=== PATIENT | male | born 1960 | race Caucasian/White ===

== ENCOUNTER 2019-12-14 10:58 | Observation (INO) | payer BC ==
[2019-12-14] MEDS: Lactated Ringers 1,000 ML IV SCH ×4 (11:22→23:31)
[2019-12-14 14:27] LABS: CHLORIDE,CL 105 mEq/L (98-106); SODIUM,NA 141 mEq/L (136-145)
[2019-12-14] MEDS ORDERED: Ondansetron 4 MG/2 ML SDV IV PRN (15:21)
[2019-12-14] MEDS ORDERED: Non-Formulary Medication 1 Each (Albuterol 0 PUFF) INH PRN (15:23)
[2019-12-14] MEDS: LOSARTAN 50 MG PO SCH (18:16)
[2019-12-14] MEDS: FLOVENT INH SCH (19:53)
[2019-12-15 04:48] VITALS: PULSE 65
[2019-12-15] MEDS: FLOVENT INH SCH (07:40)
[2019-12-15] MEDS: LOSARTAN 50 MG PO SCH (07:41)
[2019-12-15] MEDS ORDERED: ARGININE 500 MG PO SCH (08:00)
[2019-12-15] MEDS ORDERED: Famotidine 20 MG Tab PO SCH (08:00)
[2019-12-15] MEDS ORDERED: Loratadine 10 MG Tab PO SCH (08:00)
[2019-12-15] MEDS ORDERED: Fluticasone Propionate Nasal Spray 16 GM Bottle NASBOTH SCH (08:00)
[2019-12-15] MEDS ORDERED: METOPROLOL SUC PO SCH (08:00)
[2019-12-15 08:36] VITALS: BP 140/87
--- NOTE | 2019-12-15 08:44 | PCM.DCSUM1 ---
Discharge Summary - Hospital Course HPI Initial Comments: This patient is a 59 year old male that was admitted yesterday for nausea and vomiting x2. Patient presented with FB sensation in epigastric region. He underwent EGD by Dr. Gan yesterday. After procedure patient reports the FB was gone sensation. Patient reports vomiting x2 after procedure. Patient reports after vomiting yesterday, which he says was around 4pm, he felt fine. He reports his nausea resolved. Labs and troponin were done. EKG was done and read yesterday as no ST elevations. 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 Due to this, will redraw a troponin this morning. If negative will discharge patient home. Dr. Gan has already seen the patient today and discharged form his care for home. - Discharge Data Discharge Date: 12/15/19 Discharge Disposition: Home, Self-Care 01 Condition: Good - Referral to Home Health Primary Care Physician: Jose Castaneda MD - Patient Instructions Diet: Usual Diet as Tolerated Activity: As Tolerated Driving: May Drive Today Showering/Bathing: May Shower Notify Provider of: Fever, Nausea and/or Vomiting Other/Special Instructions: Followup with primary care provider as needed. Return as needed. Followup with Dr. Gan as needed or as directed - Discharge Plan *PRESCRIPTION DRUG MONITORING PROGRAM REVIEWED*: Not Applicable *COPY OF PRESCRIPTION DRUG MONITORING REPORT IN PATIENT VICTOR HUGO: Not Applicable Home Medications: Home Meds Montelukast [Singulair] 10 mg PO DAILY 04/09/13 [History] Albuterol [Ventolin HFA] 1 - 2 puff INH Q4H PRN 12/25/13 [History] Arginine 500 mg PO DAILY 07/31/16 [History] Cetirizine [ZyrTEC] 10 mg PO DAILY 07/31/16 [History] Ibuprofen [Motrin] 600 mg PO Q8H PRN 07/31/16 [History] Losartan [Cozaar] 50 mg PO DAILY 07/31/16 [History] Magnesium 250 mg PO DAILY 07/31/16 [History] Metoprolol Succinate [Toprol XL] 100 mg PO DAILY 07/31/16 [History] Multivitamin [Multivitamins] 1 cap PO DAILY 07/31/16 [History] Mcgrann-3 Fatty Acids [Fish Oil] 300 mg PO DAILY 07/31/16 [History] Saw Meherrin Fruit [Saw Meherrin] 450 mg PO DAILY 07/31/16 [History] Ascorbic Acid [Vitamin C] 1,000 mg PO DAILY 12/14/19 [History] Cholecalciferol (Vitamin D3) [Vitamin D3] 1,000 unit PO DAILY 12/14/19 [History] Famotidine 20 mg PO DAILY 12/14/19 [History] Fluticasone Propionate [Flonase] 2 spray NS DAILY 12/14/19 [History] Fluticasone Propionate [Flovent] 1 puff INH BID 12/14/19 [History] Patient Handouts: Fox's Esophagus - Discharge Summary/Plan Comment DC Time >30 min.: No - General Info Functional Status: Reports: Pain Controlled, Tolerating Diet, Ambulating, Urinating - Review of Systems General: Reports: No Symptoms HEENT: Reports: No Symptoms Pulmonary: Reports: No Symptoms. Denies: Shortness of Breath Cardiovascular: Reports: No Symptoms. Denies: Chest Pain, Palpitations, Dyspnea on Exertion, Lightheadedness Gastrointestinal: Reports: No Symptoms. Denies: Abdominal Pain, Nausea, Vomiting Genitourinary: Reports: No Symptoms Musculoskeletal: Reports: No Symptoms Skin: Reports: No Symptoms Neurological: Reports: No Symptoms Psychiatric: Reports: No Symptoms - Patient Data Vitals - Most Recent: Last Vital Signs Temp 97.2 F 12/15/19 08:00 Pulse 65 12/15/19 08:00 Resp 16 12/15/19 08:00 BP 140/87 12/15/19 08:00 Pulse Ox 95 12/15/19 08:00 Weight - Most Recent: 249 lb I&O - Last 24 hours: Intake & Output 12/14/19 12/15/19 12/15/19 22:59 06:59 14:59 Intake Total 860 Balance 860 Lab Results - Last 24 hrs: Laboratory Results - last 24 hr 12/14/19 12/14/19 Range/Units 14:02 14:02 WBC 9.6 (5.0-10.0) 10^3/uL RBC 4.83 (4.50-6.00) 10^6/uL Hgb 14.8 (14.0-18.0) g/dL Hct 44.3 (40.0-54.0) % MCV 91.7 (82.0-94.0) fL MCH 30.6 (27.0-32.0) pg MCHC 33.4 (33.0-38.0) g/dL RDW Coeff of Regis 13.0 (11.0-15.0) % Plt Count 218 (150-400) 10^3/uL Neut % (Auto) 72.1 (35-85) % Lymph % (Auto) 17.1 (10-55) % Piute % (Auto) 8.6 (0-16) % Eos % (Auto) 1.8 (0-5) % Baso % (Auto) 0.4 (0-3) % Neut # (Auto) 6.92 (1.80-7.00) 10^3/uL Lymph # (Auto) 1.64 (1.00-4.80) 10^3/uL Piute # (Auto) 0.82 H (0.00-0.80) 10^3/uL Eos # (Auto) 0.17 (0.00-0.45) 10^3/uL Baso # (Auto) 0.04 10^3/uL Sodium 141 (136-145) mEq/L Potassium 4.3 (3.5-5.0) mEq/L Chloride 105 (98-106) mEq/L Carbon Dioxide 26 (21-32) mmol/L BUN 21 H (7-18) mg/dL Creatinine 0.9 (0.7-1.3) mg/dL Est Cr Clr Drug Dosing 102.34 mL/min Estimated GFR (MDRD) > 60 (>=60) mL/min Glucose 150 H D (75-99) mg/dL Calcium 8.6 (8.4-10.1) mg/dL Lactate Dehydrogenase 152 (100-190) U/L Creatine Kinase 49 (35-232) U/L Troponin I < 0.017 (0.00-0.06) ng/mL Med Orders - Current: Current Medications Famotidine (Pepcid) 20 mg PO DAILY [facility] Last Admin: 12/15/19 07:43 Dose: Not Given Documented by: Fluticasone Propionate (Flonase) gm NASBOTH DAILY [facility] Lactated Ringer's (Ringers, Lactated) 1,000 mls @ 125 mls/hr IV ASDIRECTED [facility] Last Admin: 12/14/19 23:31 Dose: 125 mls/hr Documented by: Loratadine (Claritin) 10 mg PO DAILY [facility] Last Admin: 12/15/19 07:43 Dose: Not Given Documented by: Magnesium Oxide (Magnesium Oxide) 250 mg PO DAILY [facility] Last Admin: 12/15/19 07:43 Dose: Not Given Documented by: Montelukast Sodium (Singulair) 10 mg PO DAILY [facility] Last Admin: 12/15/19 07:41 Dose: 10 mg Documented by: Non-Formulary Medication (Albuterol) 1 - 2 puff INH Q4H PRN PRN Reason: Dyspnea Non-Formulary Medication (Arginine [Arginine]) 500 mg PO DAILY [facility] Flovent Diskus (Inhaler Own Med) 1 puff INH BID [facility] Last Admin: 12/15/19 07:40 Dose: 1 puff Documented by: Losartan 50 Mg (Own Med) 0 mg PO DAILY [facility] Last Admin: 12/15/19 07:41 Dose: 50 mg Documented by: Ondansetron HCl (Zofran) 4 mg IV Q4H PRN PRN Reason: Nausea/Vomiting Metoprolol Suc 100mg (Tab Own Med) 0 each PO DAILY [facility] Last Admin: 12/15/19 07:41 Dose: 1 each Documented by: Discontinued Medications Lactated Ringer's (Ringers, Lactated) 1,000 mls @ 125 mls[facility] Admin: 12/14/19 14:07 Dose: 125 mls/hr Documented by: - Exam General: Reports: Alert, Oriented, Cooperative Neck: Reports: Supple, Trachea Midline, No JVD Lungs: Reports: Clear to Auscultation, Normal Respiratory Effort Cardiovascular: Reports: Regular Rate, Regular Rhythm, Other (defib) GI/Abdominal Exam: Normal Bowel Sounds, Soft, Non-Tender, No Organomegaly, No Distention Back Exam: Reports: Normal Inspection Extremities: Normal Inspection, Non-Tender, No Pedal Edema, Normal Capillary Refill Skin: Reports: Warm, Dry, Intact Psy/Mental Status: Reports: Alert, Normal Affect, Normal Mood
--- NOTE | 2019-12-17 11:13 | OR ---
DATE OF OPERATION: 12/14/2019 PREOPERATIVE DIAGNOSIS: FOREIGN BODY OBSTRUCTION OF THE ESOPHAGUS. POSTOPERATIVE DIAGNOSIS: FOREIGN BODY OBSTRUCTION OF THE ESOPHAGUS. SURGEON: Zechariah Gan MD PROCEDURE: ESOPHAGOGASTRODUODENOSCOPY WITH REMOVAL OF FOREIGN BODY WITHIN THE ESOPHAGUS (FOOD BOLUS). ANESTHESIA: Monitored anesthesia care. SPECIMEN: None. INDICATIONS: This 59-year-old male presented to the [facility] with a day-long history of inability to swallow even much in the way of liquids. He thinks he was eating a pork chop last night and that was when his obstructive symptoms started. DESCRIPTION OF PROCEDURE: After adequate preparation, a gastroscope was inserted into the esophagus. This was passed down to the mid esophagus, where a retained food bolus was noted. I was able to pass the scope through this and down to the distal portion of the esophagus. There was a food bolus also at the distal end, which was easily manipulated and pushed down into the stomach. The scope was withdrawn, and the remaining food bolus was irrigated clear and pushed down into the stomach. This completely cleared the esophagus without any difficulty. There was no evidence of mechanical obstruction secondary to a tumor or a stricture. 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 This was circumferential for about 10 cm and the lip of Fox's extends up to at least 15 to 20 cm. Multiple biopsies of the area were taken for pathological identification. 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 Examination of the stomach was normal by scope as was the duodenum. Air was suctioned from the stomach, and the scope was removed. BPB/JEFFL /[id number]
== END 2019-12-15 09:28 | disposition home or self-care (01) ==
LOC: CC.SDS 10:58 → CC.MS 15:21
PROVIDERS: ADMIT Physician Assistant Medical; ATTEND Surgery
DX: K22.2 Esophageal obstruction (principal); T18.128A Food in esophagus causing other injury, initial encounter; E11.9 Type 2 diabetes mellitus without complications; G47.30 Sleep apnea, unspecified; N40.1 Benign prostatic hyperplasia with lower urinary tract symptoms; R35.1 Nocturia; Z88.5 Allergy status to narcotic agent; Z88.6 Allergy status to analgesic agent; Z88.8 Allergy status to other drugs, medicaments and biological substances; Z79.899 Other long term (current) drug therapy
CPT/HCPCS: 36415; 80048; 82550; 83615; 84484; 85025; 93005; 96360; 96361; A9270-GY; G0378; J7120

== ENCOUNTER 2021-09-06 10:42 | Emergency (ER) | payer BC ==
[2021-09-06 11:30] LABS: CHLORIDE,CL 102 mEq/L (98-106); SODIUM,NA 140 mEq/L (136-145)
[2021-09-06] MEDS ORDERED: cefTRIAXone 1 GM Vial IVPUSH ONE (12:22)
[2021-09-06 13:17] VITALS: BP 121/69; PULSE 77
[2021-09-06] MEDS ORDERED: Acetaminophen 325 MG Tab PO ONE (13:17)
== END 2021-09-06 13:36 ==
LOC: CC.ED 10:42
DX: L03.116 Cellulitis of left lower limb (principal); R79.82 Elevated C-reactive protein (CRP); J45.909 Unspecified asthma, uncomplicated; M19.90 Unspecified osteoarthritis, unspecified site; Z88.6 Allergy status to analgesic agent; Z88.5 Allergy status to narcotic agent; Z91.018 Allergy to other foods
CPT/HCPCS: 36415; 73630-LT; 80053; 83605; 85025; 86140; 87040; 96374; 99284; 99284-25; A9270-GY; J0696

== ENCOUNTER 2022-01-05 19:50 | Emergency (ER) | payer BC ==
[2022-01-05 20:34] VITALS: BP 110/61; PULSE 71
[2022-01-05 21:12] LABS: CHLORIDE,CL 105 mEq/L (98-106); SODIUM,NA 139 mEq/L (136-145)
[2022-01-05 21:13] LABS: ESTIMATED GFR 49 mL/min (>=60)
== END 2022-01-05 22:17 | disposition home or self-care (01) ==
LOC: CC.ED 19:50
DX: L02.612 Cutaneous abscess of left foot (principal); E11.9 Type 2 diabetes mellitus without complications; I11.9 Hypertensive heart disease without heart failure; K21.9 Gastro-esophageal reflux disease without esophagitis; Z95.810 Presence of automatic (implantable) cardiac defibrillator; Z88.5 Allergy status to narcotic agent; Z91.018 Allergy to other foods; Z88.8 Allergy status to other drugs, medicaments and biological substances; Z91.048 Other nonmedicinal substance allergy status; Z79.899 Other long term (current) drug therapy
CPT/HCPCS: 36415; 73660-T1; 80053; 83605; 85025; 86140; 87040; 99283

== ENCOUNTER 2022-07-01 11:18 | Emergency (ER) | payer BC ==
[2022-07-01 11:40] VITALS: BP 99/55; PULSE 99
[2022-07-01] MEDS: Ondansetron 4 MG/2 ML SDV IVPUSH ONE (11:58)
[2022-07-01] MEDS: Ketorolac 30 MG/ML SDV IVPUSH ONE (11:59)
[2022-07-01] MEDS: Lactated Ringers 1,000 ML IV ONE ×2 (12:02→13:31)
[2022-07-01] MEDS: Iopamidol 755 Mg/ML 100 ML Bottle IVPUSH ONE (13:01)
== END 2022-07-01 15:00 | disposition home or self-care (01) ==
LOC: SUPCPDRO 11:18 → CC.ED 11:18
DX: K52.9 Noninfective gastroenteritis and colitis, unspecified (principal); J45.909 Unspecified asthma, uncomplicated; K21.9 Gastro-esophageal reflux disease without esophagitis; E11.9 Type 2 diabetes mellitus without complications; Z95.810 Presence of automatic (implantable) cardiac defibrillator; Z91.018 Allergy to other foods; Z88.8 Allergy status to other drugs, medicaments and biological substances; Z88.5 Allergy status to narcotic agent; Z91.048 Other nonmedicinal substance allergy status; Z20.822 Contact with and (suspected) exposure to COVID-19
CPT/HCPCS: 36415; 74177; 80053; 81001; 83605; 83735; 85025; 96361; 96374; 96375; 99284; 99284-25; J1885; J2405; J7120; Q9967; U0002

== ENCOUNTER 2022-07-12 15:56 | Inpatient (IN) | payer BC ==
[2022-07-12 16:30] LABS: CHLORIDE,CL 95 mEq/L (98-106); SODIUM,NA 130 mEq/L (136-145)
[2022-07-12 16:35] LABS: ESTIMATED GFR 87 mL/min (>=60)
[2022-07-12] MEDS ORDERED: Sodium Chloride 0.9% 1,000 ML IV ONE (17:23)
[2022-07-12] MEDS ORDERED: Acetaminophen 325 MG Tab PO PRN (17:30)
[2022-07-12] MEDS ORDERED: Ondansetron 4 MG/2 ML SDV IV PRN (17:30)
[2022-07-12] MEDS ORDERED: Ondansetron 4 MG Tab.DIS PO PRN (17:30)
[2022-07-12] MEDS ORDERED: methylPREDNISolone Sodium Succinate 125 MG/2 ML SDV IVPUSH STA (17:41)
[2022-07-12] MEDS ORDERED: Iopamidol 755 Mg/ML 100 ML Bottle IVPUSH ONE (17:47)
[2022-07-12] MEDS ORDERED: Albuterol 90 MCG/6.7 GM Inhaler INH PRN (17:51)
[2022-07-12] MEDS ORDERED: Levofloxacin/Dextrose 5%-Water 750 MG in Premix Bag 1 BAG IV SCH (18:00)
[2022-07-12] MEDS: metroNIDAZOLE/Normal Saline 500 MG in Premix Bag 1 BAG IV SCH (18:36)
[2022-07-12] MEDS: Hyoscyamine 0.125 MG Tab.SL SL SCH (19:36)
[2022-07-12] MEDS: rOPINIRole 0.25 MG Tab PO SCH (19:36)
[2022-07-12] MEDS: Pantoprazole 40 MG Tab.CR PO SCH (19:36)
[2022-07-12] MEDS: Fluticasone NASAL Spray 16 GM Bottle NASBOTH SCH (19:37)
[2022-07-12] MEDS: Lactated Ringers 1,000 ML IV SCH (21:55)
[2022-07-13] MEDS: metroNIDAZOLE/Normal Saline 500 MG in Premix Bag 1 BAG IV SCH ×4 (01:16→23:54)
[2022-07-13] MEDS: Lactated Ringers 1,000 ML IV SCH ×2 (04:11→15:52)
[2022-07-13] MEDS: Multivitamin Tab PO SCH (08:56)
[2022-07-13] MEDS: Meloxicam 7.5 MG Tab PO SCH (08:56)
[2022-07-13] MEDS: Montelukast 10 MG Tab PO SCH (08:56)
[2022-07-13] MEDS: Pantoprazole 40 MG Tab.CR PO SCH ×2 (08:56→20:08)
[2022-07-13] MEDS: Cholecalciferol (Vitamin D3) 25 MCG Tab PO SCH (08:57)
[2022-07-13] MEDS: Ascorbic Acid 500 MG Tab PO SCH (08:58)
[2022-07-13] MEDS: Hyoscyamine 0.125 MG Tab.SL SL SCH ×3 (08:58→20:08)
[2022-07-13] MEDS: Loratadine 10 MG Tab PO SCH (08:58)
[2022-07-13] MEDS: methylPREDNISolone Sodium Succinate 125 MG/2 ML SDV IVPUSH SCH (08:58)
[2022-07-13] MEDS: Metoprolol Succinate 25 MG Tab.ER PO SCH (09:01)
[2022-07-13] MEDS: Fluticasone NASAL Spray 16 GM Bottle NASBOTH SCH ×3 (09:57→20:03)
[2022-07-13] MEDS: DAPAGLIFLOZIN PROPANEDIOL 5 MG PO SCH (09:58)
[2022-07-13] MEDS: QUINIDINE SULFATE 200 MG PO SCH ×2 (15:39→20:09)
[2022-07-13] MEDS ORDERED: Levofloxacin/Dextrose 5%-Water 750 MG in Premix Bag 1 BAG IV SCH (20:00)
[2022-07-13] MEDS: rOPINIRole 0.25 MG Tab PO SCH (20:09)
[2022-07-13] MEDS: SACUBITRIL PO SCH (20:10)
[2022-07-13] MEDS: VALSARTAN PO SCH (20:10)
[2022-07-14] MEDS: methylPREDNISolone Sodium Succinate 125 MG/2 ML SDV IVPUSH SCH (07:15)
[2022-07-14] MEDS: metroNIDAZOLE/Normal Saline 500 MG in Premix Bag 1 BAG IV SCH ×2 (07:19→16:00)
[2022-07-14] MEDS: Montelukast 10 MG Tab PO SCH (07:25)
[2022-07-14] MEDS: Multivitamin Tab PO SCH (07:25)
[2022-07-14] MEDS: Ascorbic Acid 500 MG Tab PO SCH (07:25)
[2022-07-14] MEDS: Hyoscyamine 0.125 MG Tab.SL SL SCH ×2 (07:26→14:21)
[2022-07-14] MEDS: Loratadine 10 MG Tab PO SCH (07:26)
[2022-07-14] MEDS: Cholecalciferol (Vitamin D3) 25 MCG Tab PO SCH (07:26)
[2022-07-14] MEDS: Pantoprazole 40 MG Tab.CR PO SCH (07:26)
[2022-07-14] MEDS: Meloxicam 7.5 MG Tab PO SCH (07:26)
[2022-07-14] MEDS: DAPAGLIFLOZIN PROPANEDIOL 5 MG PO SCH (07:32)
[2022-07-14] MEDS: QUINIDINE SULFATE 200 MG PO SCH ×2 (07:33→14:19)
[2022-07-14] MEDS: Fluticasone NASAL Spray 16 GM Bottle NASBOTH SCH ×2 (07:34)
[2022-07-14] MEDS: SACUBITRIL PO SCH (07:34)
[2022-07-14] MEDS: VALSARTAN PO SCH (07:34)
[2022-07-14] MEDS: Metoprolol Succinate 25 MG Tab.ER PO SCH (08:38)
[2022-07-14 16:56] VITALS: BP 101/51; PULSE 79
[2022-07-14] MEDS ORDERED: Lactated Ringers 1,000 ML IV SCH (17:15)
== END 2022-07-14 18:45 | DRG 249 ==
LOC: CC.FCMC 15:56 → CC.MS 15:56 → UNDOADMIN 17:03 → CC.MS 17:03
PROVIDERS: ADMIT Nurse Practitioner Family; ATTEND Nurse Practitioner Family
DX: K52.9 Noninfective gastroenteritis and colitis, unspecified (principal); E87.1 Hypo-osmolality and hyponatremia; R63.4 Abnormal weight loss; H54.7 Unspecified visual loss; K21.9 Gastro-esophageal reflux disease without esophagitis; I10 Essential (primary) hypertension; G47.30 Sleep apnea, unspecified; J45.909 Unspecified asthma, uncomplicated; E11.9 Type 2 diabetes mellitus without complications; M19.90 Unspecified osteoarthritis, unspecified site; Z96.641 Presence of right artificial hip joint; Z88.5 Allergy status to narcotic agent; Z91.018 Allergy to other foods; Z79.899 Other long term (current) drug therapy; Z87.01 Personal history of pneumonia (recurrent)
CPT/HCPCS: 36415; 74177; 80048; 80053; 81001; 82150; 83605; 85025; 87045; 87046; 87493; A9270-GY; J1956; J2930; J3490; J7030; J7120; Q9967

== ENCOUNTER 2023-05-04 14:15 | Inpatient (IN) | payer BC ==
[2023-05-04] MEDS ORDERED: Sodium Chloride 0.9% 1,000 ML ONE (14:26)
[2023-05-04 15:07] LABS: BASOPHILS ABSOLUTE AUTO 0.01 10^3/uL (0.00-0.50); EOSINOPHILS ABSOLUTE AUTO 0.02 10^3/uL (0.00-1.50); EOSINOPHILS PERCENT AUTO 0.1 % (0-6); HEMATOCRIT 45.3 % (42.0-52.0); IMMATURE GRAN ABSOLUTE AUTO 0.15 10^3/uL (0.00-0.49); IMMATURE GRAN PERCENT AUTO 0.7 % (0.0-4.9); LYMPHOCYTES ABSOLUTE AUTO 1.76 10^3/uL (0.60-5.00); MEAN CORPUSCULAR HEMOGLOBIN 25.8 pg (27.0-32.0); MEAN CORPUSCULAR HGB CONC 33.1 g/dL (32.0-36.0); MONOCYTES ABSOLUTE AUTO 2.11 10^3/uL (0.00-1.50); MONOCYTES PERCENT AUTO 9.6 % (0-10); NEUTROPHILS ABSOLUTE AUTO 17.96 x10^3/uL (1.80-8.00); NEUTROPHILS PERCENT AUTO 81.6 % (41-71); PLATELET COUNT,PLT 283 10^3/uL (150-400); RED BLOOD CELL COUNT 5.81 x10^6/uL (4.50-6.00)
[2023-05-04] MEDS ORDERED: Sodium Chloride 0.9% 1,000 ML IV ONE ×3 (15:11→20:01)
[2023-05-04 15:48] LABS: ALBUMIN 3.8 g/dL (3.4-5.0); BILIRUBIN TOTAL 0.8 mg/dL (0.0-1.0); C-REACTIVE PROTEIN 7.35 mg/dL (<=0.50); CALCIUM 8.4 mg/dL (8.4-10.1); EST CRCL DRUG DOSING (CG) 8.62 mL/min; MAGNESIUM 2.6 mg/dL (1.8-2.4); PROTEIN TOTAL,TP 8.7 g/dL (6.4-8.2)
[2023-05-04 16:04] LABS: POTASSIUM,K 7.2 mEq/L (3.5-5.0)
[2023-05-04 16:05] LABS: CREATININE 10.3 mg/dL (0.7-1.3)
[2023-05-04] MEDS ORDERED: Calcium Gluconate 10% 1 GM/10 ML SDV IVPUSH ONE (16:07)
[2023-05-04] MEDS ORDERED: Glucagon,Human Recombinant 1 MG Vial IM PRN (16:10)
[2023-05-04] MEDS ORDERED: Insulin Regular, Human 100 Units/ML 3 ML Vial IV STA (16:10)
[2023-05-04] MEDS ORDERED: 50% Dextrose in Water 50 ML Syringe IVPUSH PRN (16:10)
[2023-05-04] MEDS ORDERED: Piperacillin/Tazobactam 4.5 GM in Sodium Chloride 0.9% 100 ML IV ONE (16:18)
[2023-05-04 16:33] LABS: APPEARANCE,URINE CLEAR (CLEAR); COLOR,URINE YELLOW (YELLOW); GLUCOSE,URINE 100 mg/dL (NEGATIVE); KETONES,URINE NEGATIVE (NEGATIVE); LEUKOCYTE ESTERASE,URINE SMALL (NEGATIVE); NITRITE,URINE NEGATIVE (NEGATIVE); OCCULT BLOOD,URINE TRACE-INTACT (NEGATIVE); PROTEIN,URINE 100 mg/dL (NEGATIVE); UROBILINOGEN,URINE 0.2 EU/dL (0.2-1.0)
[2023-05-04] MEDS ORDERED: 50% Dextrose in Water 50 ML Syringe IVPUSH ONE (16:36)
[2023-05-04 16:46] LABS: BILIRUBIN,URINE NEGATIVE (NEGATIVE); MUCUS,URINE FEW /HPF (NOT SEEN); RBC,URINE 50-75 /HPF (0-5)
[2023-05-04] MEDS ORDERED: Albumin 25% 25 GM in Sodium Chloride 0.9% 400 ML IV ONE (16:54)
[2023-05-04] MEDS ORDERED: Sodium Chloride 0.9% 500 ML ONE (17:20)
[2023-05-04 17:23] LABS: CALCIUM 7.7 mg/dL (8.4-10.1); EST CRCL DRUG DOSING (CG) 9.35 mL/min; POTASSIUM,K 5.4 mEq/L (3.5-5.0)
[2023-05-04 17:42] LABS: CREATININE 9.5 mg/dL (0.7-1.3)
[2023-05-04 19:20] LABS: CALCIUM 7.5 mg/dL (8.4-10.1); EST CRCL DRUG DOSING (CG) 9.55 mL/min; POTASSIUM,K 5.1 mEq/L (3.5-5.0)
[2023-05-04] MEDS: Vancomycin 125 MG Cap PO SCH (19:29)
[2023-05-04 19:30] LABS: CREATININE 9.3 mg/dL (0.7-1.3)
[2023-05-04] MEDS ORDERED: Sodium Bicarbonate 100 MEQ in Dextrose 5% in Water 1,000 ML IV ONE ×2 (20:03)
[2023-05-04] MEDS: Sodium Chloride 0.9% 1,000 ML IV SCH ×3 (21:28→23:37)
[2023-05-04] MEDS ORDERED: Acetaminophen 650 MG Supp RECTAL PRN (22:54)
[2023-05-04] MEDS ORDERED: Ondansetron 4 MG/2 ML SDV IV PRN (22:54)
[2023-05-04] MEDS ORDERED: Ondansetron 4 MG Tab.DIS PO PRN (22:54)
[2023-05-04] MEDS ORDERED: Sodium Chloride 0.9% 10 ML Syringe FLUSH PRN (22:54)
[2023-05-05 00:23] LABS: BASOPHILS ABSOLUTE AUTO 0.02 10^3/uL (0.00-0.50); BASOPHILS PERCENT AUTO 0.2 % (0-1); EOSINOPHILS ABSOLUTE AUTO 0.04 10^3/uL (0.00-1.50); EOSINOPHILS PERCENT AUTO 0.4 % (0-6); HEMATOCRIT 33.9 % (42.0-52.0); HEMOGLOBIN 11.4 g/dL (14.0-18.0); IMMATURE GRAN ABSOLUTE AUTO 0.05 10^3/uL (0.00-0.49); IMMATURE GRAN PERCENT AUTO 0.5 % (0.0-4.9); LYMPHOCYTES ABSOLUTE AUTO 1.41 10^3/uL (0.60-5.00); LYMPHOCYTES PERCENT AUTO 14.8 % (24-44); MEAN CORPUSCULAR HEMOGLOBIN 26.2 pg (27.0-32.0); MEAN CORPUSCULAR HGB CONC 33.6 g/dL (32.0-36.0); MEAN CORPUSCULAR VOLUME 77.9 fL (83.0-97.0); MONOCYTES ABSOLUTE AUTO 1.01 10^3/uL (0.00-1.50); MONOCYTES PERCENT AUTO 10.6 % (0-10); NEUTROPHILS PERCENT AUTO 73.5 % (41-71); PLATELET COUNT,PLT 172 10^3/uL (150-400); RED BLOOD CELL COUNT 4.35 x10^6/uL (4.50-6.00); WHITE BLOOD CELL COUNT,WBC 9.5 10^3/uL (4.0-11.0)
[2023-05-05 00:32] LABS: EST CRCL DRUG DOSING (CG) 10.83 mL/min; MAGNESIUM 1.9 mg/dL (1.8-2.4); POTASSIUM,K 4.2 mEq/L (3.5-5.0)
[2023-05-05 00:38] LABS: CALCIUM 6.7 mg/dL (8.4-10.1); CREATININE 8.2 mg/dL (0.7-1.3)
[2023-05-05] MEDS: Pantoprazole 40 MG Tab.CR PO SCH ×2 (07:01→16:46)
[2023-05-05] MEDS ORDERED: Metoprolol Succinate 25 MG Tab.ER PO SCH (08:00)
[2023-05-05] MEDS ORDERED: Losartan 100 MG Tab PO SCH (08:00)
[2023-05-05 08:05] LABS: BASOPHILS ABSOLUTE AUTO 0.01 10^3/uL (0.00-0.50); BASOPHILS PERCENT AUTO 0.1 % (0-1); EOSINOPHILS ABSOLUTE AUTO 0.05 10^3/uL (0.00-1.50); EOSINOPHILS PERCENT AUTO 0.5 % (0-6); HEMOGLOBIN 11.6 g/dL (14.0-18.0); IMMATURE GRAN ABSOLUTE AUTO 0.04 10^3/uL (0.00-0.49); IMMATURE GRAN PERCENT AUTO 0.4 % (0.0-4.9); LYMPHOCYTES ABSOLUTE AUTO 1.15 10^3/uL (0.60-5.00); LYMPHOCYTES PERCENT AUTO 10.8 % (24-44); MEAN CORPUSCULAR HEMOGLOBIN 26.1 pg (27.0-32.0); MEAN CORPUSCULAR HGB CONC 34.1 g/dL (32.0-36.0); MEAN CORPUSCULAR VOLUME 76.4 fL (83.0-97.0); MONOCYTES ABSOLUTE AUTO 1.44 10^3/uL (0.00-1.50); MONOCYTES PERCENT AUTO 13.5 % (0-10); NEUTROPHILS PERCENT AUTO 74.7 % (41-71); PLATELET COUNT,PLT 179 10^3/uL (150-400); RED BLOOD CELL COUNT 4.45 x10^6/uL (4.50-6.00); WHITE BLOOD CELL COUNT,WBC 10.7 10^3/uL (4.0-11.0)
[2023-05-05] MEDS: rOPINIRole 0.25 MG Tab PO SCH (08:16)
[2023-05-05] MEDS: Fluticasone NASAL Spray 16 GM Bottle NASBOTH SCH (08:17)
[2023-05-05] MEDS: Loratadine 10 MG Tab PO SCH (08:17)
[2023-05-05] MEDS: Multivitamins with Iron/Calcium/Folic Acid/Minerals Tab PO SCH (08:17)
[2023-05-05] MEDS: Vancomycin 125 MG Cap PO SCH ×4 (08:17→20:32)
[2023-05-05] MEDS: Ascorbic Acid 500 MG Tab PO SCH (08:17)
[2023-05-05] MEDS: Montelukast 10 MG Tab PO SCH (08:17)
[2023-05-05] MEDS: Cholecalciferol (Vitamin D3) 25 MCG Tab PO SCH (08:17)
[2023-05-05] MEDS: Formoterol/Mometasone 200-5 MCG 8.8 GM Inhaler IH SCH ×2 (08:17→20:35)
[2023-05-05] MEDS: Magnesium Oxide 400 MG Tab PO SCH (08:17)
[2023-05-05 08:21] LABS: C-REACTIVE PROTEIN 10.8 mg/dL (<=0.50); CALCIUM 7.3 mg/dL (8.4-10.1); EST CRCL DRUG DOSING (CG) 12.87 mL/min; MAGNESIUM 1.9 mg/dL (1.8-2.4); POTASSIUM,K 3.9 mEq/L (3.5-5.0)
[2023-05-05 08:30] LABS: CREATININE 6.9 mg/dL (0.7-1.3)
[2023-05-05 09:41] LABS: ALBUMIN 2.8 g/dL (3.4-5.0); BILIRUBIN TOTAL 0.7 mg/dL (0.0-1.0)
[2023-05-05] MEDS: Sodium Chloride 0.9% 1,000 ML IV SCH (09:42)
[2023-05-05 10:04] LABS: O2 DELIVERY DEVICE ROOM AIR; PCO2 ARTERIAL 17 mm/Hg0 (35-45); PH,ARTERIAL 7.31 (7.35-7.45)
[2023-05-05 10:05] LABS: BASE EXCESS ARTERIAL -17.6 (-2.0-3.0); BICARBONATE,ARTERIAL 8.6 mm/L (22.0-26.0); O2 SATURATION ARTERIAL 97 % (95-98); PO2 ARTERIAL 98 mm/Hg (80-100)
[2023-05-05] MEDS ORDERED: Sodium Bicarbonate 100 MEQ in Dextrose 5% in Water 1,000 ML IV ONE ×2 (10:29)
[2023-05-05] MEDS ORDERED: Sodium Chloride 0.9% 1,000 ML IV SCH (10:30)
[2023-05-05] MEDS ORDERED: ALBUMIN HUMAN IV ONE (10:45)
[2023-05-05] MEDS ORDERED: SODIUM CHLORIDE 0.9% IV ONE (10:45)
[2023-05-05] MEDS: QUINIDINE SULFATE 200 MG PO SCH ×3 (11:27→20:35)
[2023-05-05] MEDS: DAPAGLIFLOZIN PROPANEDIOL 10 MG PO SCH (13:22)
[2023-05-05 14:31] LABS: BASOPHILS ABSOLUTE AUTO 0.01 10^3/uL (0.00-0.50); BASOPHILS PERCENT AUTO 0.1 % (0-1); EOSINOPHILS ABSOLUTE AUTO 0.04 10^3/uL (0.00-1.50); EOSINOPHILS PERCENT AUTO 0.5 % (0-6); HEMATOCRIT 30.2 % (42.0-52.0); HEMOGLOBIN 10.3 g/dL (14.0-18.0); IMMATURE GRAN ABSOLUTE AUTO 0.03 10^3/uL (0.00-0.49); IMMATURE GRAN PERCENT AUTO 0.4 % (0.0-4.9); LYMPHOCYTES PERCENT AUTO 8.7 % (24-44); MEAN CORPUSCULAR HEMOGLOBIN 26.1 pg (27.0-32.0); MEAN CORPUSCULAR HGB CONC 34.1 g/dL (32.0-36.0); MEAN CORPUSCULAR VOLUME 76.6 fL (83.0-97.0); MONOCYTES ABSOLUTE AUTO 1.12 10^3/uL (0.00-1.50); MONOCYTES PERCENT AUTO 13.9 % (0-10); NEUTROPHILS ABSOLUTE AUTO 6.16 x10^3/uL (1.80-8.00); NEUTROPHILS PERCENT AUTO 76.4 % (41-71); PLATELET COUNT,PLT 148 10^3/uL (150-400); RED BLOOD CELL COUNT 3.94 x10^6/uL (4.50-6.00); WHITE BLOOD CELL COUNT,WBC 8.1 10^3/uL (4.0-11.0)
[2023-05-05 14:32] LABS: O2 DELIVERY DEVICE ROOM AIR
[2023-05-05 14:42] LABS: BICARBONATE,ARTERIAL 8.9 mm/L (22.0-26.0); O2 SATURATION ARTERIAL 96 % (95-98); PCO2 ARTERIAL 20 mm/Hg0 (35-45); PH,ARTERIAL 7.27 (7.35-7.45); PO2 ARTERIAL 88 mm/Hg (80-100)
[2023-05-05 14:44] LABS: ALBUMIN 2.8 g/dL (3.4-5.0); BILIRUBIN TOTAL 0.6 mg/dL (0.0-1.0); EST CRCL DRUG DOSING (CG) 14.8 mL/min; POTASSIUM,K 3.6 mEq/L (3.5-5.0); PROTEIN TOTAL,TP 5.8 g/dL (6.4-8.2)
[2023-05-05] MEDS: Lactated Ringers 1,000 ML IV SCH ×2 (15:01→22:46)
[2023-05-05] MEDS ORDERED: Magnesium Sulfate/Water 4 GM in Premix Bag 1 BAG IV ONE (15:11)
[2023-05-05] MEDS: Acetaminophen 325 MG Tab PO PRN (17:45)
[2023-05-05] MEDS: Sodium Bicarbonate 100 MEQ in Dextrose 5% in Water 1,000 ML IV SCH ×2 (19:00)
[2023-05-06] MEDS: Sodium Bicarbonate 100 MEQ in Dextrose 5% in Water 1,000 ML IV SCH ×2 (02:14)
[2023-05-06] MEDS: Pantoprazole 40 MG Tab.CR PO SCH ×2 (06:59→16:21)
[2023-05-06] MEDS: Vancomycin 125 MG Cap PO SCH ×4 (07:38→20:32)
[2023-05-06] MEDS: rOPINIRole 0.25 MG Tab PO SCH (07:38)
[2023-05-06] MEDS: Multivitamins with Iron/Calcium/Folic Acid/Minerals Tab PO SCH (07:38)
[2023-05-06] MEDS: Magnesium Oxide 400 MG Tab PO SCH (07:38)
[2023-05-06] MEDS: Loratadine 10 MG Tab PO SCH (07:38)
[2023-05-06] MEDS: Montelukast 10 MG Tab PO SCH (07:39)
[2023-05-06] MEDS: Cholecalciferol (Vitamin D3) 25 MCG Tab PO SCH (07:39)
[2023-05-06] MEDS: DAPAGLIFLOZIN PROPANEDIOL 10 MG PO SCH (07:40)
[2023-05-06] MEDS: Ascorbic Acid 500 MG Tab PO SCH (07:40)
[2023-05-06] MEDS: QUINIDINE SULFATE 200 MG PO SCH ×3 (07:41→20:32)
[2023-05-06 07:42] LABS: BASOPHILS ABSOLUTE AUTO 0.04 10^3/uL (0.00-0.50); BASOPHILS PERCENT AUTO 0.6 % (0-1); EOSINOPHILS ABSOLUTE AUTO 0.15 10^3/uL (0.00-1.50); EOSINOPHILS PERCENT AUTO 2.3 % (0-6); HEMATOCRIT 29.8 % (42.0-52.0); HEMOGLOBIN 10.1 g/dL (14.0-18.0); IMMATURE GRAN ABSOLUTE AUTO 0.03 10^3/uL (0.00-0.49); IMMATURE GRAN PERCENT AUTO 0.5 % (0.0-4.9); LYMPHOCYTES ABSOLUTE AUTO 0.99 10^3/uL (0.60-5.00); LYMPHOCYTES PERCENT AUTO 14.9 % (24-44); MEAN CORPUSCULAR HGB CONC 33.9 g/dL (32.0-36.0); MEAN CORPUSCULAR VOLUME 76.6 fL (83.0-97.0); MONOCYTES PERCENT AUTO 15.1 % (0-10); NEUTROPHILS ABSOLUTE AUTO 4.43 x10^3/uL (1.80-8.00); NEUTROPHILS PERCENT AUTO 66.6 % (41-71); PLATELET COUNT,PLT 143 10^3/uL (150-400); RED BLOOD CELL COUNT 3.89 x10^6/uL (4.50-6.00); WHITE BLOOD CELL COUNT,WBC 6.6 10^3/uL (4.0-11.0)
[2023-05-06 07:56] LABS: C-REACTIVE PROTEIN 14.38 mg/dL (<=0.50); CALCIUM 7.8 mg/dL (8.4-10.1); EST CRCL DRUG DOSING (CG) 24.66 mL/min; MAGNESIUM 2.1 mg/dL (1.8-2.4)
[2023-05-06] MEDS ORDERED: Metoprolol Succinate 100 MG Tab.ER PO SCH (08:00)
[2023-05-06] MEDS ORDERED: Losartan 25 MG Tab PO SCH (08:00)
[2023-05-06] MEDS: Formoterol/Mometasone 200-5 MCG 8.8 GM Inhaler IH SCH ×2 (08:01→20:49)
[2023-05-06] MEDS: Fluticasone NASAL Spray 16 GM Bottle NASBOTH SCH (08:01)
[2023-05-06 08:06] LABS: CREATININE 3.6 mg/dL (0.7-1.3)
[2023-05-06] MEDS: Lactated Ringers 1,000 ML IV SCH (08:48)
[2023-05-06 08:54] LABS: ALBUMIN 2.5 g/dL (3.4-5.0); BILIRUBIN TOTAL 0.6 mg/dL (0.0-1.0); PROTEIN TOTAL,TP 5.8 g/dL (6.4-8.2)
[2023-05-06] MEDS ORDERED: Sodium Bicarbonate 100 MEQ in Dextrose 5% in Water 1,000 ML IV SCH ×2 (10:00)
[2023-05-06] MEDS ORDERED: Potassium Chloride 20 MEQ Tab.ER PO ONE (10:15)
[2023-05-06] MEDS ORDERED: Furosemide 40 MG/4 ML VIAL IVPUSH ONE (10:15)
[2023-05-06] MEDS ORDERED: Sodium Bicarbonate 100 MEQ in Dextrose 5% in Water 1,000 ML IV ONE ×2 (21:36)
[2023-05-07] MEDS: Acetaminophen 325 MG Tab PO PRN ×2 (00:03→23:52)
[2023-05-07] MEDS: Pantoprazole 40 MG Tab.CR PO SCH ×2 (06:36→16:12)
[2023-05-07] MEDS: Montelukast 10 MG Tab PO SCH (07:19)
[2023-05-07] MEDS: Cholecalciferol (Vitamin D3) 25 MCG Tab PO SCH (07:19)
[2023-05-07] MEDS: rOPINIRole 0.25 MG Tab PO SCH (07:19)
[2023-05-07] MEDS: Magnesium Oxide 400 MG Tab PO SCH (07:19)
[2023-05-07] MEDS: Loratadine 10 MG Tab PO SCH (07:20)
[2023-05-07] MEDS: Multivitamins with Iron/Calcium/Folic Acid/Minerals Tab PO SCH (07:20)
[2023-05-07] MEDS: Ascorbic Acid 500 MG Tab PO SCH (07:20)
[2023-05-07] MEDS: Vancomycin 125 MG Cap PO SCH ×4 (07:20→19:21)
[2023-05-07] MEDS: QUINIDINE SULFATE 200 MG PO SCH ×3 (07:23→19:22)
[2023-05-07] MEDS: Fluticasone NASAL Spray 16 GM Bottle NASBOTH SCH (07:23)
[2023-05-07] MEDS: DAPAGLIFLOZIN PROPANEDIOL 10 MG PO SCH (07:24)
[2023-05-07] MEDS: Formoterol/Mometasone 200-5 MCG 8.8 GM Inhaler IH SCH ×2 (07:25→19:23)
[2023-05-07 07:50] LABS: BASOPHILS ABSOLUTE AUTO 0.04 10^3/uL (0.00-0.50); BASOPHILS PERCENT AUTO 0.5 % (0-1); EOSINOPHILS PERCENT AUTO 3.5 % (0-6); HEMATOCRIT 32.9 % (42.0-52.0); HEMOGLOBIN 11.2 g/dL (14.0-18.0); IMMATURE GRAN ABSOLUTE AUTO 0.07 10^3/uL (0.00-0.49); IMMATURE GRAN PERCENT AUTO 0.8 % (0.0-4.9); LYMPHOCYTES ABSOLUTE AUTO 1.88 10^3/uL (0.60-5.00); LYMPHOCYTES PERCENT AUTO 22.1 % (24-44); MEAN CORPUSCULAR HEMOGLOBIN 26.5 pg (27.0-32.0); MEAN CORPUSCULAR VOLUME 77.8 fL (83.0-97.0); MONOCYTES ABSOLUTE AUTO 1.05 10^3/uL (0.00-1.50); MONOCYTES PERCENT AUTO 12.4 % (0-10); NEUTROPHILS ABSOLUTE AUTO 5.15 x10^3/uL (1.80-8.00); NEUTROPHILS PERCENT AUTO 60.7 % (41-71); PLATELET COUNT,PLT 192 10^3/uL (150-400); RED BLOOD CELL COUNT 4.23 x10^6/uL (4.50-6.00); WHITE BLOOD CELL COUNT,WBC 8.5 10^3/uL (4.0-11.0)
[2023-05-07 08:12] LABS: ALBUMIN 2.6 g/dL (3.4-5.0); BILIRUBIN TOTAL 0.6 mg/dL (0.0-1.0); C-REACTIVE PROTEIN 9.4 mg/dL (<=0.50); CALCIUM 8.6 mg/dL (8.4-10.1); EST CRCL DRUG DOSING (CG) 44.39 mL/min; MAGNESIUM 1.8 mg/dL (1.8-2.4); POTASSIUM,K 3.4 mEq/L (3.5-5.0); PROTEIN TOTAL,TP 6.4 g/dL (6.4-8.2)
[2023-05-08] MEDS: Pantoprazole 40 MG Tab.CR PO SCH ×2 (06:35→16:28)
[2023-05-08] MEDS: rOPINIRole 0.25 MG Tab PO SCH (07:22)
[2023-05-08] MEDS: Cholecalciferol (Vitamin D3) 25 MCG Tab PO SCH (07:23)
[2023-05-08] MEDS: Vancomycin 125 MG Cap PO SCH ×4 (07:23→20:04)
[2023-05-08] MEDS: Ascorbic Acid 500 MG Tab PO SCH (07:23)
[2023-05-08] MEDS: Magnesium Oxide 400 MG Tab PO SCH (07:23)
[2023-05-08] MEDS: Loratadine 10 MG Tab PO SCH (07:23)
[2023-05-08] MEDS: Montelukast 10 MG Tab PO SCH (07:23)
[2023-05-08] MEDS: Multivitamins with Iron/Calcium/Folic Acid/Minerals Tab PO SCH (07:23)
[2023-05-08] MEDS: Formoterol/Mometasone 200-5 MCG 8.8 GM Inhaler IH SCH ×2 (07:24→20:05)
[2023-05-08] MEDS: DAPAGLIFLOZIN PROPANEDIOL 10 MG PO SCH (07:24)
[2023-05-08] MEDS: QUINIDINE SULFATE 200 MG PO SCH ×3 (07:24→20:05)
[2023-05-08] MEDS: Fluticasone NASAL Spray 16 GM Bottle NASBOTH SCH (07:27)
[2023-05-08 07:56] LABS: BASOPHILS ABSOLUTE AUTO 0.04 10^3/uL (0.00-0.50); BASOPHILS PERCENT AUTO 0.5 % (0-1); EOSINOPHILS PERCENT AUTO 5.2 % (0-6); HEMATOCRIT 35.1 % (42.0-52.0); HEMOGLOBIN 11.4 g/dL (14.0-18.0); IMMATURE GRAN ABSOLUTE AUTO 0.05 10^3/uL (0.00-0.49); IMMATURE GRAN PERCENT AUTO 0.6 % (0.0-4.9); LYMPHOCYTES PERCENT AUTO 23.2 % (24-44); MEAN CORPUSCULAR HEMOGLOBIN 26.1 pg (27.0-32.0); MEAN CORPUSCULAR HGB CONC 32.5 g/dL (32.0-36.0); MEAN CORPUSCULAR VOLUME 80.5 fL (83.0-97.0); MONOCYTES ABSOLUTE AUTO 0.92 10^3/uL (0.00-1.50); MONOCYTES PERCENT AUTO 11.9 % (0-10); NEUTROPHILS ABSOLUTE AUTO 4.54 x10^3/uL (1.80-8.00); NEUTROPHILS PERCENT AUTO 58.6 % (41-71); PLATELET COUNT,PLT 222 10^3/uL (150-400); RED BLOOD CELL COUNT 4.36 x10^6/uL (4.50-6.00); WHITE BLOOD CELL COUNT,WBC 7.8 10^3/uL (4.0-11.0)
[2023-05-08 08:21] LABS: ALBUMIN 2.7 g/dL (3.4-5.0); BILIRUBIN TOTAL 0.5 mg/dL (0.0-1.0); C-REACTIVE PROTEIN 4.57 mg/dL (<=0.50); CALCIUM 8.9 mg/dL (8.4-10.1); CREATININE 1.5 mg/dL (0.7-1.3); EST CRCL DRUG DOSING (CG) 59.19 mL/min; MAGNESIUM 1.5 mg/dL (1.8-2.4); POTASSIUM,K 3.8 mEq/L (3.5-5.0); PROTEIN TOTAL,TP 6.6 g/dL (6.4-8.2)
[2023-05-09] MEDS: Pantoprazole 40 MG Tab.CR PO SCH (06:30)
[2023-05-09] MEDS: Vancomycin 125 MG Cap PO SCH ×2 (07:14→12:10)
[2023-05-09] MEDS: Magnesium Oxide 400 MG Tab PO SCH (07:14)
[2023-05-09] MEDS: Ascorbic Acid 500 MG Tab PO SCH (07:14)
[2023-05-09] MEDS: Multivitamins with Iron/Calcium/Folic Acid/Minerals Tab PO SCH (07:14)
[2023-05-09] MEDS: Montelukast 10 MG Tab PO SCH (07:15)
[2023-05-09] MEDS: Loratadine 10 MG Tab PO SCH (07:15)
[2023-05-09] MEDS: rOPINIRole 0.25 MG Tab PO SCH (07:15)
[2023-05-09] MEDS: Cholecalciferol (Vitamin D3) 25 MCG Tab PO SCH (07:15)
[2023-05-09] MEDS: QUINIDINE SULFATE 200 MG PO SCH (07:18)
[2023-05-09] MEDS: Formoterol/Mometasone 200-5 MCG 8.8 GM Inhaler IH SCH (07:18)
[2023-05-09] MEDS: Fluticasone NASAL Spray 16 GM Bottle NASBOTH SCH (07:20)
[2023-05-09] MEDS: DAPAGLIFLOZIN PROPANEDIOL 10 MG PO SCH (07:21)
[2023-05-09 07:46] LABS: BASOPHILS ABSOLUTE AUTO 0.04 10^3/uL (0.00-0.50); BASOPHILS PERCENT AUTO 0.5 % (0-1); EOSINOPHILS ABSOLUTE AUTO 0.56 10^3/uL (0.00-1.50); HEMATOCRIT 35.6 % (42.0-52.0); HEMOGLOBIN 11.2 g/dL (14.0-18.0); IMMATURE GRAN ABSOLUTE AUTO 0.07 10^3/uL (0.00-0.49); IMMATURE GRAN PERCENT AUTO 0.9 % (0.0-4.9); LYMPHOCYTES PERCENT AUTO 22.6 % (24-44); MEAN CORPUSCULAR HEMOGLOBIN 25.7 pg (27.0-32.0); MEAN CORPUSCULAR HGB CONC 31.5 g/dL (32.0-36.0); MEAN CORPUSCULAR VOLUME 81.8 fL (83.0-97.0); MONOCYTES ABSOLUTE AUTO 0.96 10^3/uL (0.00-1.50); MONOCYTES PERCENT AUTO 12.1 % (0-10); NEUTROPHILS ABSOLUTE AUTO 4.53 x10^3/uL (1.80-8.00); NEUTROPHILS PERCENT AUTO 56.9 % (41-71); PLATELET COUNT,PLT 230 10^3/uL (150-400); RED BLOOD CELL COUNT 4.35 x10^6/uL (4.50-6.00)
[2023-05-09 08:04] LABS: ALBUMIN 2.8 g/dL (3.4-5.0); BILIRUBIN TOTAL 0.5 mg/dL (0.0-1.0); C-REACTIVE PROTEIN 2.51 mg/dL (<=0.50); CREATININE 1.3 mg/dL (0.7-1.3); EST CRCL DRUG DOSING (CG) 68.29 mL/min; MAGNESIUM 1.4 mg/dL (1.8-2.4); POTASSIUM,K 4.4 mEq/L (3.5-5.0); PROTEIN TOTAL,TP 6.8 g/dL (6.4-8.2)
[2023-05-09 08:48] VITALS: BP 118/62; PULSE 72
[2023-05-09] MEDS ORDERED: Vancomycin 125 MG Cap PO ONE (16:00)
== END 2023-05-09 13:22 | disposition home or self-care (01) | DRG 469 ==
LOC: CC.ED 14:15 → CC.MS 20:30 → UNDOADMIN 20:30 → CC.MS 22:12
PROVIDERS: ADMIT Nurse Practitioner Family; ATTEND Nurse Practitioner Family
PROC: 0T9B70Z Drainage of Bladder with Drainage Device, Via Natural or Artificial Opening (ICD-10-PCS; principal; 2023-05-04)
PROC: 4A033R1 Measurement of Arterial Saturation, Peripheral, Percutaneous Approach (ICD-10-PCS; 2023-05-04)
DX: N17.9 Acute kidney failure, unspecified (principal); A04.72 Enterocolitis due to Clostridium difficile, not specified as recurrent; E83.41 Hypermagnesemia; E87.1 Hypo-osmolality and hyponatremia; J45.909 Unspecified asthma, uncomplicated; G47.30 Sleep apnea, unspecified; K21.9 Gastro-esophageal reflux disease without esophagitis; M19.90 Unspecified osteoarthritis, unspecified site; E11.9 Type 2 diabetes mellitus without complications; Z96.649 Presence of unspecified artificial hip joint; I10 Essential (primary) hypertension; E87.5 Hyperkalemia; D72.825 Bandemia; R79.82 Elevated C-reactive protein (CRP); Z93.3 Colostomy status; Z88.8 Allergy status to other drugs, medicaments and biological substances; Z88.5 Allergy status to narcotic agent; Z95.810 Presence of automatic (implantable) cardiac defibrillator; Z91.018 Allergy to other foods; Z79.899 Other long term (current) drug therapy; Z87.01 Personal history of pneumonia (recurrent); Z87.81 Personal history of (healed) traumatic fracture; Z90.89 Acquired absence of other organs; Z98.890 Other specified postprocedural states; Z11.52 Encounter for screening for COVID-19
CPT/HCPCS: 36415; 36600; 71045; 80048; 80053; 81001; 82550; 82803; 83605; 83735; 84484; 85025; 86140; 87040; 87493; 87804; 93005; 93010; 94640; 97110-GP; 97161-GP; 99223; 99232; 99233; 99239; A9270-GY; J0612; J1815-GY; J1940; J2543; J3475; J3490; J7030; J7040; J7060; J7120; P9047; U0002

== ENCOUNTER 2024-01-04 10:49 | Inpatient (IN) | payer BC ==
[2024-01-04] MEDS ORDERED: Glucagon,Human Recombinant 1 MG Vial IM PRN (13:17)
[2024-01-04] MEDS ORDERED: Albuterol 0.083% 2.5 MG/3 ML Neb Soln INH PRN (13:17)
[2024-01-04] MEDS ORDERED: Albuterol 6.7 GM Inhaler INH PRN (13:17)
[2024-01-04] MEDS ORDERED: 50% Dextrose in Water 50 ML Syringe IVPUSH PRN (13:17)
[2024-01-04] MEDS: cefTRIAXone 2 GM Vial IVPUSH ONE (13:54)
[2024-01-04] MEDS ORDERED: Ondansetron 4 MG Tab.DIS PO PRN (14:55)
[2024-01-04] MEDS: metFORMIN 500 MG Tab PO SCH (17:42)
[2024-01-04] MEDS: Insulin Lispro 100 Units/ML 3 ML Vial SUBCUT SCH (17:43)
[2024-01-04] MEDS: Pantoprazole 40 MG Tab.CR PO SCH (19:39)
[2024-01-04] MEDS: Montelukast 10 MG Tab PO SCH (19:39)
[2024-01-04] MEDS: Apixaban 5 MG Tab PO SCH (19:41)
[2024-01-04] MEDS: Sennosides 8.6 MG Tab PO SCH (19:41)
[2024-01-04] MEDS: rOPINIRole 1 MG Tab PO SCH (19:43)
[2024-01-04] MEDS: Insulin Glarg,Human.Rec.Analog 100 Unit/ML 10 ML Vial SUBCUT SCH (19:49)
[2024-01-04] MEDS: QUINIDINE SULFATE 200 MG PO SCH (19:58)
[2024-01-05] MEDS: Fluticasone NASAL Spray 16 GM Bottle NASBOTH SCH (07:43)
[2024-01-05] MEDS: Multivitamins with Iron/Calcium/Folic Acid/Minerals Tab PO SCH (07:44)
[2024-01-05] MEDS: Cholecalciferol (Vitamin D3) 25 MCG Tab PO SCH (07:44)
[2024-01-05] MEDS: Loratadine 10 MG Tab PO SCH (07:44)
[2024-01-05] MEDS: Magnesium Oxide 400 MG Tab PO SCH (07:44)
[2024-01-05] MEDS ORDERED: ARGININE 500 MG PO SCH (08:00)
[2024-01-05] MEDS ORDERED: FATTY ACIDS PO SCH (08:00)
[2024-01-05] MEDS ORDERED: OMEGA PO SCH (08:00)
[2024-01-05] MEDS: Losartan 25 MG Tab PO SCH (08:02)
[2024-01-05] MEDS: Metoprolol Succinate 100 MG Tab.ER PO SCH (08:02)
[2024-01-05] MEDS: ARGININE 500 MG PO SCH (08:54)
[2024-01-05] MEDS: DAPAGLIFLOZIN PROPANEDIOL 10 MG PO SCH (08:54)
[2024-01-05] MEDS: cefTRIAXone 2 GM Vial IVPUSH SCH (11:39)
[2024-01-06] MEDS: Acetaminophen 500 MG Tab PO PRN (03:12)
[2024-01-06] MEDS: Mometasone Furoate Powder 220 MCG/Puff 14 Dose Inhaler INH SCH (08:34)
[2024-01-06] MEDS: oxyCODONE 5 MG Tab PO PRN (14:03)
[2024-01-06] MEDS: Ondansetron 4 MG/2 ML SDV IVPUSH PRN (18:47)
[2024-01-06] MEDS: Sodium Chloride 0.9% 1,000 ML IV ONE (19:33)
[2024-01-06 19:43] LABS: BASOPHILS ABSOLUTE AUTO 0.11 10^3/uL (0.00-0.50); BASOPHILS PERCENT AUTO 1.1 % (0-1); EOSINOPHILS ABSOLUTE AUTO 0.62 10^3/uL (0.00-1.50); EOSINOPHILS PERCENT AUTO 6.1 % (0-6); HEMATOCRIT 33.9 % (42.0-52.0); HEMOGLOBIN 10.6 g/dL (14.0-18.0); IMMATURE GRAN ABSOLUTE AUTO 0.04 10^3/uL (0.00-0.49); IMMATURE GRAN PERCENT AUTO 0.4 % (0.0-4.9); LYMPHOCYTES ABSOLUTE AUTO 2.88 10^3/uL (0.60-5.00); LYMPHOCYTES PERCENT AUTO 28.5 % (24-44); MEAN CORPUSCULAR HGB CONC 31.3 g/dL (32.0-36.0); MEAN CORPUSCULAR VOLUME 86.5 fL (83.0-97.0); MONOCYTES ABSOLUTE AUTO 0.99 10^3/uL (0.00-1.50); MONOCYTES PERCENT AUTO 9.8 % (0-10); NEUTROPHILS ABSOLUTE AUTO 5.46 x10^3/uL (1.80-8.00); NEUTROPHILS PERCENT AUTO 54.1 % (41-71); PLATELET COUNT,PLT 229 10^3/uL (150-400); RED BLOOD CELL COUNT 3.92 x10^6/uL (4.50-6.00); WHITE BLOOD CELL COUNT,WBC 10.1 10^3/uL (4.0-11.0)
[2024-01-06 19:59] LABS: ALBUMIN 3.1 g/dL (3.4-5.0); BILIRUBIN TOTAL 0.4 mg/dL (0.0-1.0); C-REACTIVE PROTEIN 0.52 mg/dL (<=0.50); CALCIUM 8.8 mg/dL (8.4-10.1); CREATININE 1.4 mg/dL (0.7-1.3); EST CRCL DRUG DOSING (CG) 60.82 mL/min; POTASSIUM,K 4.2 mEq/L (3.5-5.0); PROTEIN TOTAL,TP 7.3 g/dL (6.4-8.2)
[2024-01-06] MEDS: Sodium Chloride 0.9% 1,000 ML ONE (20:32)
[2024-01-06] MEDS: Sodium Chloride 0.9% 100 ML ONE (20:33)
[2024-01-09 08:13] LABS: BASOPHILS ABSOLUTE AUTO 0.09 10^3/uL (0.00-0.50); BASOPHILS PERCENT AUTO 1.6 % (0-1); EOSINOPHILS ABSOLUTE AUTO 0.35 10^3/uL (0.00-1.50); EOSINOPHILS PERCENT AUTO 6.2 % (0-6); HEMATOCRIT 34.3 % (42.0-52.0); HEMOGLOBIN 10.5 g/dL (14.0-18.0); IMMATURE GRAN ABSOLUTE AUTO 0.01 10^3/uL (0.00-0.49); IMMATURE GRAN PERCENT AUTO 0.2 % (0.0-4.9); LYMPHOCYTES ABSOLUTE AUTO 2.03 10^3/uL (0.60-5.00); LYMPHOCYTES PERCENT AUTO 35.7 % (24-44); MEAN CORPUSCULAR HEMOGLOBIN 26.9 pg (27.0-32.0); MEAN CORPUSCULAR HGB CONC 30.6 g/dL (32.0-36.0); MEAN CORPUSCULAR VOLUME 87.9 fL (83.0-97.0); MONOCYTES ABSOLUTE AUTO 0.51 10^3/uL (0.00-1.50); NEUTROPHILS PERCENT AUTO 47.3 % (41-71); PLATELET COUNT,PLT 184 10^3/uL (150-400); WHITE BLOOD CELL COUNT,WBC 5.7 10^3/uL (4.0-11.0)
[2024-01-09 08:36] LABS: ALBUMIN 2.8 g/dL (3.4-5.0); BILIRUBIN TOTAL 0.3 mg/dL (0.0-1.0); CREATININE 1.2 mg/dL (0.7-1.3); EST CRCL DRUG DOSING (CG) 70.95 mL/min; PROTEIN TOTAL,TP 7.4 g/dL (6.4-8.2)
[2024-01-12] MEDS: Nystatin Crm 30 GM Tube TOP SCH (20:17)
[2024-01-13 07:04] VITALS: BP 110/60; PULSE 79
== END 2024-01-13 16:37 | disposition home or self-care (01) | DRG 861 ==
LOC: UNDOADMIN 12:42 → CC.MS 12:42
PROVIDERS: ADMIT Nurse Practitioner; ATTEND Nurse Practitioner
DX: R53.81 Other malaise (principal); K68.12 Psoas muscle abscess; I11.0 Hypertensive heart disease with heart failure; I50.9 Heart failure, unspecified; E11.42 Type 2 diabetes mellitus with diabetic polyneuropathy; J45.909 Unspecified asthma, uncomplicated; G47.30 Sleep apnea, unspecified; M19.90 Unspecified osteoarthritis, unspecified site; K21.9 Gastro-esophageal reflux disease without esophagitis; R53.1 Weakness; R55 Syncope and collapse; Z88.6 Allergy status to analgesic agent; Z88.5 Allergy status to narcotic agent; Z88.8 Allergy status to other drugs, medicaments and biological substances; Z79.4 Long term (current) use of insulin; Z98.49 Cataract extraction status, unspecified eye; Z79.01 Long term (current) use of anticoagulants; Z79.84 Long term (current) use of oral hypoglycemic drugs; Z90.89 Acquired absence of other organs; Z95.810 Presence of automatic (implantable) cardiac defibrillator; Z91.018 Allergy to other foods; Z79.899 Other long term (current) drug therapy; Z96.649 Presence of unspecified artificial hip joint; Z98.890 Other specified postprocedural states
CPT/HCPCS: 36415; 80053; 82947; 84484; 85025; 86140; 93005; 93010; 94640; 97110-GP; 97161-GP; 97605-GP; 97606-GP; 99306; 99307; 99315; A9270-GY; J0696; J1642; J1815-GY; J2405; J7030

== ENCOUNTER 2024-02-10 13:45 | Emergency (ER) | payer BC ==
[2024-02-10 13:55] VITALS: BP 112/82; PULSE 102
[2024-02-10 14:06] LABS: BASOPHILS ABSOLUTE AUTO 0.08 10^3/uL (0.00-0.50); BASOPHILS PERCENT AUTO 0.9 % (0-1); EOSINOPHILS ABSOLUTE AUTO 0.25 10^3/uL (0.00-1.50); EOSINOPHILS PERCENT AUTO 2.8 % (0-6); HEMATOCRIT 40.7 % (42.0-52.0); HEMOGLOBIN 12.8 g/dL (14.0-18.0); IMMATURE GRAN ABSOLUTE AUTO 0.02 10^3/uL (0.00-0.49); IMMATURE GRAN PERCENT AUTO 0.2 % (0.0-4.9); LYMPHOCYTES ABSOLUTE AUTO 1.55 10^3/uL (0.60-5.00); LYMPHOCYTES PERCENT AUTO 17.3 % (24-44); MEAN CORPUSCULAR HEMOGLOBIN 26.9 pg (27.0-32.0); MEAN CORPUSCULAR HGB CONC 31.4 g/dL (32.0-36.0); MEAN CORPUSCULAR VOLUME 85.5 fL (83.0-97.0); MONOCYTES ABSOLUTE AUTO 0.73 10^3/uL (0.00-1.50); MONOCYTES PERCENT AUTO 8.1 % (0-10); NEUTROPHILS ABSOLUTE AUTO 6.33 x10^3/uL (1.80-8.00); NEUTROPHILS PERCENT AUTO 70.7 % (41-71); PLATELET COUNT,PLT 252 10^3/uL (150-400); RED BLOOD CELL COUNT 4.76 x10^6/uL (4.50-6.00)
[2024-02-10 14:20] LABS: ALBUMIN 3.9 g/dL (3.4-5.0); BILIRUBIN TOTAL 0.6 mg/dL (0.0-1.0); C-REACTIVE PROTEIN 0.97 mg/dL (<=0.50); CALCIUM 9.2 mg/dL (8.4-10.1); CREATININE 1.2 mg/dL (0.7-1.3); EST CRCL DRUG DOSING (CG) 73.06 mL/min; POTASSIUM,K 4.1 mEq/L (3.5-5.0); PROTEIN TOTAL,TP 7.6 g/dL (6.4-8.2)
[2024-02-10] MEDS: Iopamidol 755 Mg/ML 100 ML Bottle IVPUSH ONE (14:46)
[2024-02-10] MEDS: Furosemide 40 MG/4 ML VIAL IVPUSH ONE (17:05)
== END 2024-02-10 17:37 | disposition home or self-care (01) ==
LOC: SUPCPDRO 13:45 → CC.ED 13:45
DX: I11.0 Hypertensive heart disease with heart failure (principal); I50.9 Heart failure, unspecified; J45.909 Unspecified asthma, uncomplicated; K21.9 Gastro-esophageal reflux disease without esophagitis; E11.9 Type 2 diabetes mellitus without complications; Z79.4 Long term (current) use of insulin; Z79.84 Long term (current) use of oral hypoglycemic drugs; Z79.899 Other long term (current) drug therapy; Z88.6 Allergy status to analgesic agent; Z91.018 Allergy to other foods
CPT/HCPCS: 36415; 71046; 71275; 80053; 83880; 84484; 85025; 85379; 86140; 93005; 96374; 99285; J1940; Q9967

== ENCOUNTER 2024-02-26 08:13 | Emergency (ER) | payer BC ==
[2024-02-26 08:30] LABS: BASOPHILS ABSOLUTE AUTO 0.06 10^3/uL (0.00-0.50); BASOPHILS PERCENT AUTO 0.5 % (0-1); EOSINOPHILS ABSOLUTE AUTO 0.06 10^3/uL (0.00-1.50); EOSINOPHILS PERCENT AUTO 0.5 % (0-6); HEMATOCRIT 40.7 % (42.0-52.0); HEMOGLOBIN 13.2 g/dL (14.0-18.0); IMMATURE GRAN ABSOLUTE AUTO 0.03 10^3/uL (0.00-0.49); IMMATURE GRAN PERCENT AUTO 0.3 % (0.0-4.9); LYMPHOCYTES ABSOLUTE AUTO 1.24 10^3/uL (0.60-5.00); LYMPHOCYTES PERCENT AUTO 10.5 % (24-44); MEAN CORPUSCULAR HEMOGLOBIN 26.6 pg (27.0-32.0); MEAN CORPUSCULAR HGB CONC 32.4 g/dL (32.0-36.0); MEAN CORPUSCULAR VOLUME 82.1 fL (83.0-97.0); MONOCYTES ABSOLUTE AUTO 0.92 10^3/uL (0.00-1.50); MONOCYTES PERCENT AUTO 7.8 % (0-10); NEUTROPHILS ABSOLUTE AUTO 9.52 x10^3/uL (1.80-8.00); NEUTROPHILS PERCENT AUTO 80.4 % (41-71); PLATELET COUNT,PLT 233 10^3/uL (150-400); RED BLOOD CELL COUNT 4.96 x10^6/uL (4.50-6.00); WHITE BLOOD CELL COUNT,WBC 11.8 10^3/uL (4.0-11.0)
[2024-02-26 08:42] LABS: ALBUMIN 3.7 g/dL (3.4-5.0); BILIRUBIN TOTAL 0.6 mg/dL (0.0-1.0); C-REACTIVE PROTEIN 1.22 mg/dL (<=0.50); CALCIUM 9.5 mg/dL (8.4-10.1); CREATININE 1.7 mg/dL (0.7-1.3); EST CRCL DRUG DOSING (CG) 51.57 mL/min; MAGNESIUM 1.9 mg/dL (1.8-2.4); POTASSIUM,K 3.5 mEq/L (3.5-5.0); PROTEIN TOTAL,TP 7.5 g/dL (6.4-8.2)
[2024-02-26 08:45] LABS: APPEARANCE,URINE CLEAR (CLEAR); BILIRUBIN,URINE NEGATIVE (NEGATIVE); COLOR,URINE YELLOW (YELLOW); GLUCOSE,URINE 500 mg/dL (NEGATIVE); KETONES,URINE NEGATIVE (NEGATIVE); LEUKOCYTE ESTERASE,URINE NEGATIVE (NEGATIVE); NITRITE,URINE NEGATIVE (NEGATIVE); OCCULT BLOOD,URINE TRACE-INTACT (NEGATIVE); PH,URINE 5.5 (4.5-8.0); PROTEIN,URINE TRACE mg/dL (NEGATIVE); UROBILINOGEN,URINE 0.2 EU/dL (0.2-1.0)
[2024-02-26] MEDS ORDERED: Sodium Chloride 0.9% 10 ML Syringe FLUSH PRN (08:46)
[2024-02-26 08:48] LABS: BACTERIA,URINE RARE /HPF (NOT SEEN); EPITHELIAL CELLS,URINE NOT SEEN /HPF (NOT SEEN); MUCUS,URINE OCCASIONAL /HPF (NOT SEEN); RBC,URINE 0-5 /HPF (0-5); WBC,URINE NOT SEEN /HPF (0-5)
[2024-02-26] MEDS: Sodium Chloride 0.9% 1,000 ML IV ONE (09:00)
[2024-02-26] MEDS: HYDROmorphone 0.5 MG/0.5 ML Syringe IVPUSH ONE ×2 (09:58→12:43)
[2024-02-26] MEDS: Ondansetron 4 MG/2 ML SDV IVPUSH STA (10:05)
[2024-02-26] MEDS: Tamsulosin 0.4 MG Cap.ER PO ONE (12:43)
[2024-02-26] MEDS: Sodium Chloride 0.9% 1,000 ML IV SCH (14:56)
[2024-02-26 15:18] VITALS: BP 109/72; PULSE 90
== END 2024-02-26 15:15 ==
LOC: CC.ED 08:13
DX: N13.2 Hydronephrosis with renal and ureteral calculous obstruction (principal); N17.9 Acute kidney failure, unspecified; J45.909 Unspecified asthma, uncomplicated; K21.9 Gastro-esophageal reflux disease without esophagitis; E11.9 Type 2 diabetes mellitus without complications; Z79.899 Other long term (current) drug therapy; Z79.4 Long term (current) use of insulin; Z91.018 Allergy to other foods; Z88.6 Allergy status to analgesic agent
CPT/HCPCS: 36415; 74176; 80053; 81001; 83735; 85025; 86140; 96361; 96374; 96375; 96376; 99284; 99285-25; A9270-GY; J1171; J2405; J7030

== ENCOUNTER 2024-05-15 11:55 | Emergency (ER) | payer BC ==
[2024-05-15 12:05] VITALS: BP 125/75; PULSE 90
== END 2024-05-15 12:20 ==
LOC: CC.ED 11:55
DX: T82.110A Breakdown (mechanical) of cardiac electrode, initial encounter (principal); I48.91 Unspecified atrial fibrillation; I10 Essential (primary) hypertension; J45.909 Unspecified asthma, uncomplicated; K21.9 Gastro-esophageal reflux disease without esophagitis; E11.9 Type 2 diabetes mellitus without complications; Z96.649 Presence of unspecified artificial hip joint; Z88.5 Allergy status to narcotic agent; Z88.6 Allergy status to analgesic agent; Z88.8 Allergy status to other drugs, medicaments and biological substances; Z91.018 Allergy to other foods; Z79.4 Long term (current) use of insulin; Z79.01 Long term (current) use of anticoagulants; Z79.84 Long term (current) use of oral hypoglycemic drugs; Z79.51 Long term (current) use of inhaled steroids; Z79.899 Other long term (current) drug therapy
CPT/HCPCS: 99285

== ENCOUNTER 2024-08-17 14:29 | Observation (INO) | payer OTHER ==
[2024-08-17] MEDS: Acetaminophen 500 MG Tab PO ONE (15:07)
[2024-08-17] MEDS ORDERED: Acetaminophen 650 MG Supp RECTAL PRN (15:42)
[2024-08-17] MEDS ORDERED: Ondansetron 4 MG/2 ML SDV IV PRN (15:42)
[2024-08-17] MEDS ORDERED: Ondansetron 4 MG Tab.DIS PO PRN (15:42)
[2024-08-17 15:43] LABS: CORONAVIRUS COVID-19 NAA NEGATIVE (NEGATIVE); INFLUENZA A NAA NEGATIVE (NEGATIVE); INFLUENZA B NAA NEGATIVE (NEGATIVE)
[2024-08-17] MEDS ORDERED: Glucagon,Human Recombinant 1 MG Vial IM PRN (15:58)
[2024-08-17] MEDS ORDERED: Albuterol 6.7 GM Inhaler INH PRN (15:58)
[2024-08-17] MEDS ORDERED: 50% Dextrose in Water 50 ML Syringe IVPUSH PRN (15:58)
[2024-08-17] MEDS: Azithromycin 250 MG Tab PO ONE (16:03)
[2024-08-17] MEDS: cefTRIAXone 1 GM Vial IVPUSH SCH (16:03)
[2024-08-17] MEDS: Sodium Chloride 0.9% 500 ML IV SCH (16:18)
[2024-08-17] MEDS ORDERED: Cyclobenzaprine 10 MG Tab PO PRN (16:20)
[2024-08-17] MEDS: metFORMIN 500 MG Tab PO SCH (17:48)
[2024-08-17 18:29] LABS: APPEARANCE,URINE CLEAR (CLEAR); BILIRUBIN,URINE NEGATIVE (NEGATIVE); COLOR,URINE YELLOW (YELLOW); GLUCOSE,URINE 500 mg/dL (NEGATIVE); KETONES,URINE NEGATIVE (NEGATIVE); LEUKOCYTE ESTERASE,URINE NEGATIVE (NEGATIVE); NITRITE,URINE NEGATIVE (NEGATIVE); OCCULT BLOOD,URINE NEGATIVE (NEGATIVE); PH,URINE 5.5 (4.5-8.0); PROTEIN,URINE 30 mg/dL (NEGATIVE); UROBILINOGEN,URINE 0.2 EU/dL (0.2-1.0)
[2024-08-17 18:32] LABS: BACTERIA,URINE RARE /HPF (NOT SEEN); EPITHELIAL CELLS,URINE NOT SEEN /HPF (NOT SEEN); MUCUS,URINE MODERATE /HPF (NOT SEEN); RBC,URINE NOT SEEN /HPF (0-5); WBC,URINE NOT SEEN /HPF (0-5)
[2024-08-17] MEDS: Albuterol/Ipratropium 3.0-0.5 MG/3 ML Neb Soln NEB SCH (20:07)
[2024-08-17] MEDS: QUINIDINE SULFATE 200 MG PO SCH (20:08)
[2024-08-17] MEDS: Pantoprazole 40 MG Tab.CR PO SCH (20:08)
[2024-08-17] MEDS: rOPINIRole 0.25 MG Tab PO SCH (20:08)
[2024-08-17] MEDS: Montelukast 10 MG Tab PO SCH (20:08)
[2024-08-17] MEDS: Apixaban 5 MG Tab PO SCH (20:08)
[2024-08-17] MEDS: Insulin Glarg,Human.Rec.Analog 100 Unit/ML 10 ML Vial SUBCUT SCH (20:09)
[2024-08-18] MEDS: Acetaminophen 325 MG Tab PO PRN (04:02)
[2024-08-18 07:17] LABS: CALCIUM 8.5 mg/dL (8.4-10.1); CREATININE 1.3 mg/dL (0.7-1.3); EST CRCL DRUG DOSING (CG) 66.58 mL/min; MAGNESIUM 1.8 mg/dL (1.8-2.4); POTASSIUM,K 3.5 mEq/L (3.5-5.0)
[2024-08-18] MEDS: Fluticasone NASAL Spray 16 GM Bottle NAS SCH (07:29)
[2024-08-18] MEDS: Metoprolol Succinate 100 MG Tab.ER PO SCH (07:30)
[2024-08-18] MEDS: Magnesium Oxide 400 MG Tab PO SCH (07:30)
[2024-08-18] MEDS: Cholecalciferol (Vitamin D3) 25 MCG Tab PO SCH (07:30)
[2024-08-18] MEDS: Doxycycline Monohydrate 100 MG Cap PO SCH (07:30)
[2024-08-18] MEDS: Ascorbic Acid 500 MG Tab PO SCH (07:30)
[2024-08-18] MEDS: Fish Oil/Omega-3 Fatty Acids 1 Gm Cap PO SCH (07:31)
[2024-08-18] MEDS: Zinc Sulfate 220 MG Cap PO SCH (07:31)
[2024-08-18] MEDS: Loratadine 10 MG Tab PO SCH (07:31)
[2024-08-18] MEDS: DAPAGLIFLOZIN PROPANEDIOL 5 MG PO SCH (07:31)
[2024-08-18] MEDS: Multivitamins with Iron/Calcium/Folic Acid/Minerals Tab PO SCH (07:31)
[2024-08-18 07:36] LABS: BASOPHILS ABSOLUTE AUTO 0.05 10^3/uL (0.00-0.50); BASOPHILS PERCENT AUTO 0.8 % (0-1); EOSINOPHILS ABSOLUTE AUTO 0.03 10^3/uL (0.00-1.50); EOSINOPHILS PERCENT AUTO 0.5 % (0-6); HEMATOCRIT 38.9 % (42.0-52.0); HEMOGLOBIN 12.2 g/dL (14.0-18.0); IMMATURE GRAN ABSOLUTE AUTO 0.04 10^3/uL (0.00-0.49); IMMATURE GRAN PERCENT AUTO 0.6 % (0.0-4.9); LYMPHOCYTES ABSOLUTE AUTO 1.28 10^3/uL (0.60-5.00); LYMPHOCYTES PERCENT AUTO 19.8 % (24-44); MEAN CORPUSCULAR HEMOGLOBIN 25.3 pg (27.0-32.0); MEAN CORPUSCULAR HGB CONC 31.4 g/dL (32.0-36.0); MEAN CORPUSCULAR VOLUME 80.7 fL (83.0-97.0); MONOCYTES ABSOLUTE AUTO 0.81 10^3/uL (0.00-1.50); MONOCYTES PERCENT AUTO 12.5 % (0-10); NEUTROPHILS ABSOLUTE AUTO 4.25 x10^3/uL (1.80-8.00); NEUTROPHILS PERCENT AUTO 65.8 % (41-71); PLATELET COUNT,PLT 173 10^3/uL (150-400); RED BLOOD CELL COUNT 4.82 x10^6/uL (4.50-6.00); WHITE BLOOD CELL COUNT,WBC 6.5 10^3/uL (4.0-11.0)
[2024-08-18] MEDS ORDERED: Azithromycin 250 MG Tab PO SCH (08:00)
[2024-08-18] MEDS ORDERED: ARGININE 500 MG PO SCH (08:00)
[2024-08-18] MEDS ORDERED: SAW PALMETTO 160 MG PO SCH (08:00)
[2024-08-18] MEDS ORDERED: FLUTICASONE PROPIONATE 250 MCG INH SCH (08:00)
[2024-08-18 11:58] VITALS: BP 105/62; PULSE 83
== END 2024-08-18 13:30 | disposition home or self-care (01) ==
LOC: CC.MS 14:29 → UNDOADMOB 14:29 → CC.MS 15:42
PROVIDERS: ADMIT Nurse Practitioner; ATTEND Nurse Practitioner
DX: R50.9 Fever, unspecified (principal); J45.909 Unspecified asthma, uncomplicated; K21.9 Gastro-esophageal reflux disease without esophagitis; E11.9 Type 2 diabetes mellitus without complications; Z79.4 Long term (current) use of insulin; Z79.84 Long term (current) use of oral hypoglycemic drugs; Z79.899 Other long term (current) drug therapy
CPT/HCPCS: 0240U; 36415; 80048; 81001; 82947; 83735; 85025; 87040; 87070; 87205; 94640; 96361; 96374; 96376; A9270-GY; G0378; J0696; J1815-GY; J7040